=== PATIENT | female | born 1965 | race Caucasian/White ===

== ENCOUNTER 2016-11-01 09:33 | Emergency (ER) | payer OTHER, BC ==
[~2016-11-01] VITALS: Ht 177.8 cm; Wt 61.0 kg
[2016-11-01 09:59] VITALS: BP 138/83; PULSE 63; RESP 16; TEMP 97.7; O2SAT 98
[2016-11-01] MEDS ORDERED: DICL50TA PO (11:13)
[2016-11-01] MEDS ORDERED: PRED20 PO (11:13)
[2016-11-01] MEDS ORDERED: ROBA750T PO (11:13)
[2016-11-01] MEDS ORDERED: ORPHENADRINE INJ 60 MG/2 ML AMP IM ONE (11:15)
[2016-11-01] MEDS ORDERED: KETOROLAC TROMETHAMINE 60 MG/2 ML (IM) VIAL IM ONE (11:15)
[2016-11-01] MEDS ORDERED: predniSONE 20 MG TAB PO ONE (11:15)
--- NOTE | 2016-11-01 11:15 | PD ---
HPI Chief Complaint: Injury Time Seen by Provider: 11:08 Travel History International Travel<30 days: No Contact w/Intl Traveler<30days: No Traveled to known affect area: No History of Present Illness HPI 51-year-old female presents to the emergency department for evaluation of left- sided neck, left shoulder pain that started 2 weeks ago after lifting heavy objects. Patient states she will have some tingling to her left second and third fingers. She denies any weakness. She denies any fevers or chills. She denies a traumatic injury. No syncope. She reports no chronic medical problems and takes no prescribed medications. She states she has seen acupuncture, but is not helping the pain. She also has tried some herbal remedies, but has not tried any anti-inflammatories [id number]. Patient reports allergy to prednisone and Zithromax, but denies any other medication allergies. She has no other complaints at this time. She denies any loss of range of motion. PFSH Past Medical History Medical History: Denies Significant Hx Diminished Hearing: No Tetanus Vaccination: Unknown ?: Not Past Surgical History Surgical History: No Previous Surgery Social History Alcohol Use: Yes (SOC) Tobacco Use: Yes (1 PPD) Substance Use: No Allergies-Medications (Allergen,Severity, Reaction): Coded Allergies: Penicillin (Verified Allergy, Intermediate, rash, 11/01/16) Zithromax (Verified Allergy, Mild, rash, 11/01/16) Reported Meds & Prescriptions Reported Meds & Active Scripts Active No Active Prescriptions or Reported Medications Review of Systems Except as stated in HPI: all other systems reviewed are Neg Physical Exam Narrative GENERAL: Well-developed well-nourished female patient, ambulatory. Afebrile. SKIN: Warm and dry. HEAD: Normocephalic. Atraumatic. EYES: No scleral icterus. No injection or drainage. NECK: Supple, trachea midline. No JVD or lymphadenopathy. CARDIOVASCULAR: Regular rate and rhythm without murmurs, gallops, or rubs. Bilateral radial pulses 2+. RESPIRATORY: Breath sounds equal bilaterally. No accessory muscle use. Lungs sounds are clear to auscultation. GASTROINTESTINAL: Abdomen soft, non-tender, nondistended. MUSCULOSKELETAL: No cyanosis, or edema. Patient has tenderness over left trapezius muscle. She has full range of motion of the left shoulder without pain or stiffness. Patient has full sensation distal left upper extremity. Bilateral upper extremity strength is 5/5. BACK: Nontender without obvious deformity. No CVA tenderness. No midline cervical spine tenderness. She has full rotation of the cervical spine. Data Data Last Documented VS Vital Signs Date Time Temp Pulse Resp B/P Pulse Ox O2 Delivery O2 Flow Rate FiO2 11/01/16 09:59 97.7 63 16 138/83 98 Orders Ketorolac Inj (Toradol Inj) (11/01/16 11:15) Orphenadrine Inj (Norflex Inj) (11/01/16 11:15) Prednisone (Deltasone) (11/01/16 11:15) MDM Medical Decision Making Medical Screen Exam Complete: Yes Emergency Medical Condition: Yes Medical Record Reviewed: Yes Differential Diagnosis Cervical radiculopathy versus muscle strain versus muscle spasm Narrative Course 51-year-old female presents to the emergency department for evaluation of left- sided neck, left shoulder pain after lifting heavy objects 2 weeks ago. She reports some paresthesias to her left second and third fingers. Patient denies a traumatic injury. Physical exam is reassuring. There is no evidence of fracture, dislocation, septic joint on exam. Physical exam is consistent with a cervical radiculopathy/muscle strain. Patient is given Toradol 60 mg IM, Norflex 60 mg IM, prednisone 40 mg by mouth. She'll be discharged with a prescription for diclofenac, Robaxin, short-term prescription for prednisone. She is encouraged to follow-up with an orthopedist if pain continues or worsens. The patient is agreeable to this plan. She is instructed to return for any acute worsening of symptoms. The patient was discharged in stable condition with instructions, including return instructions and follow up instructions. Diagnosis Primary Impression: Cervical radiculopathy Additional Impression: Trapezius muscle strain Qualified Code: S46.812A - Trapezius muscle strain, left, initial encounter Referrals: Orthopedist as needed Patient Instructions: Cervical Radiculopathy (ED), General Instructions, Muscle Strain (ED) Additional Instructions: Take diclofenac as active as needed with food for pain. Do not take with other anti-inflammatories including ibuprofen, naproxen. Take Robaxin as directed as needed. Take prednisone as instructed. Start this tomorrow. Follow-up with your primary care physician. Return to the emergency department for any acute worsening of symptoms. Med/Other Pt SpecificInfo: Prescription(s) given Scripts Prednisone 20 Mg Tab40 Mg PO DAILY 4 Days Ref 0 Prov:Sharmin Islas 11/01/16 Methocarbamol (Robaxin)750 Mg Qee465 Mg PO TID PRN (MUSCLE SPASM) #21 TAB Ref 0 Prov:Sharmin Islas 11/01/16 Diclofenac Potassium 50 Mg Tab50 Mg PO TID PRN (PAIN SCALE 1 TO 10) #21 TAB Ref 0 Prov:Sharmin Islas 11/01/16 Disposition: 01 DISCHARGE HOME Condition: Stable Sharmin Islas Nov 01, 2016 11:15
== END 2016-11-01 11:24 | disposition home or self-care (01) ==
LOC: PHED 09:33 → PHEFT 11:24
DX: M54.12 Radiculopathy, cervical region (principal); S46.812A Strain of other muscles, fascia and tendons at shoulder and upper arm level, left arm, initial encounter; X50.9XXA Other and unspecified overexertion or strenuous movements or postures, initial encounter
CPT/HCPCS: 96372; 99283; J1885; J2360; J7512